=== PATIENT | female | born 1990 | race African-American/Black ===

== ENCOUNTER 2019-01-07 00:38 | Emergency (ER) | payer SELFPAY ==
[~2019-01-07] VITALS: Ht 172.7 cm; Wt 53.5 kg
--- NOTE | 2019-01-07 00:52 | NUR ---
pt received c/o tampon being stuck for 7days. pt is currently on her menses for the past 3days [id number] denies fever/chills/headaches, denies ab pain, denies changes in b/b function. denies abn bleeding monitored accordingly, kept warm dry and comfortable. changed into pt gown and draped
[2019-01-07] MEDS ORDERED: ASPI-605 PO (00:57)
--- NOTE | 2019-01-07 01:30 | NUR ---
at bedside for hx and physical. pelvic exam done by [facility] chaperoned by Kj PAUL revealed no foreign body, cervix is pink, intact skin no s/s of infection pt able to tolerate procedure. pt NAD
--- NOTE | 2019-01-07 02:02 | NUR ---
Patient discharged to home in stable conditon. Written and verbal after care instructions given. Patient verbalizes understanding of instructions. ambulatory with stable gait. all belongings with pt
[2019-01-07 02:05] VITALS: BP 115/75
== END 2019-01-07 02:06 | disposition home or self-care (01) ==
LOC: ER 00:46
DX: N92.0 Excessive and frequent menstruation with regular cycle (principal); Z79.82 Long term (current) use of aspirin
CPT/HCPCS: A4663